=== PATIENT | female | born 2000 | race Caucasian/White ===

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

== ENCOUNTER 2020-06-27 19:48 | Emergency (ER) | payer OTHER ==
[~2020-06-27] VITALS: Ht 167.6 cm; Wt 99.8 kg
[2020-06-27 19:55] VITALS: BP 150/79
[2020-06-27 20:26] VITALS: BP 135/78
== END 2020-06-27 20:24 | disposition home or self-care (01) ==
LOC: MED 19:48
DX: L03.116 Cellulitis of left lower limb (principal); L81.8 Other specified disorders of pigmentation; E11.9 Type 2 diabetes mellitus without complications; F17.210 Nicotine dependence, cigarettes, uncomplicated; Z71.6 Tobacco abuse counseling; Z88.0 Allergy status to penicillin
CPT/HCPCS: 99282

== ENCOUNTER 2020-10-26 13:12 | Emergency (ER) | payer OTHER ==
[~2020-10-26] VITALS: Ht 167.6 cm; Wt 81.6 kg
[2020-10-26 13:16] VITALS: BP 122/80
[2020-10-26] MEDS ORDERED: SULF-59 PO (14:45)
[2020-10-26] MEDS ORDERED: NAPR-54 PO (14:45)
[2020-10-26 15:05] VITALS: BP 133/76
== END 2020-10-26 15:05 | disposition home or self-care (01) ==
LOC: MED 13:12
DX: M79.644 Pain in right finger(s) (principal); E11.9 Type 2 diabetes mellitus without complications; Z88.0 Allergy status to penicillin
CPT/HCPCS: 73140; 81025; 99284

== ENCOUNTER 2022-01-07 09:52 | Emergency (ER) | payer MEDICAID, OTHER ==
[~2022-01-07] VITALS: Ht 167.6 cm; Wt 93.4 kg
[~2022-01-07 09:52] MED LIST: NAPR-54 PO; SULF-59 PO
[2022-01-07 09:55] VITALS: BP 129/65
--- NOTE | 2022-01-07 10:00 | NUR ---
PT AMB TO BED 3.
--- NOTE | 2022-01-07 10:22 | NUR ---
21 Y.O. F C/O LOWER ABDOMINAL PAIN, NAUSEA, VOMITING X TODAY. 12 WEEKS . PT SAYS SHE HAD LIGHT SPOTTING YESTERDAY BUT NONE TODAY. DENIES FEVER, CHILLS AND PAINFUL URINATION. SHE SAYS THE PAIN IS LIKE CRAMPING AT A 5/10. A&OX4, SKIN INTACT, VITALS WNL FOR PT AND STEADY GAIT TO BEDSIDE. ALLERGY:PENICILLINS PMH: DM
[2022-01-07 10:47] LABS: BASOPHILS % (AUTO) 0.2 % (0.0-2.0); EOSINOPHILS # (AUTO) 0.1 K/uL (0-0.4); EOSINOPHILS % (AUTO) 0.6 % (0.0-4.0); HEMATOCRIT 35.5 % (36-48); HEMOGLOBIN 12.2 g/dL (12.0-16.0); LYMPHOCYTES # (AUTO) 2.2 K/uL (2.5-16.5); LYMPHOCYTES % (AUTO) 21.1 % (20.5-51.1); MEAN CORPUSCULAR HEMOGLOBIN 30 pg (27-31); MEAN CORPUSCULAR HGB CONC 35 g/dL (33-37); MEAN CORPUSCULAR VOLUME 87.8 fL (80-94); MONOCYTES # (AUTO) 0.5 K/uL (0.8-1.0); MONOCYTES % (AUTO) 5.2 % (1.7-9.3); NEUTROPHILS # (AUTO) 7.5 K/uL (1.8-7.7); NEUTROPHILS % (AUTO) 72.9 % (42.2-75.2); PLATELET COUNT (AUTO) 248 K/uL (140-450); RED BLOOD CELL COUNT(AUTO) 4.04 MIL/uL (4.20-5.40); RED CELL DISTRIBUTION WIDTH 13.9 % (11.6-13.7); WHITE BLOOD COUNT (AUTO) 10.4 K/uL (4.8-10.8)
[2022-01-07 10:47] LABS: APPEARANCE,URINE CLEAR (CLEAR); BILIRUBIN,URINE NEGATIVE (NEGATIVE); BLOOD, URINE NEGATIVE (NEGATIVE); COLOR,URINE YELLOW (YELLOW); LEUKOCYTE ESTERASE ,URINE 1+ (NEGATIVE); NITRITE, URINE NEGATIVE (NEGATIVE); UGLUCOSE NEGATIVE (NEGATIVE)
[2022-01-07 11:15] LABS: RBC,URINE 0-5 /HPF (0-5)
[2022-01-07] MEDS ORDERED: ACET-9800 PO (11:44)
[2022-01-07] MEDS ORDERED: CEPH-588 PO (11:44)
[2022-01-07 12:08] VITALS: BP 129/65
--- NOTE | 2022-01-07 12:09 | NUR ---
Patient discharged with v/s stable. Written and verbal after care instructions given and explained. Patient alert, oriented and verbalized understanding of instructions. Ambulatory with steady gait. All questions addressed prior to discharge. ID band removed. Patient advised to follow up with PMD. Rx of KEFLEX AND TYLENOL EXTRA STRENGTH given. Patient educated on indication of medication including possible reaction and side effects. Opportunity to ask questions provided and answered.
== END 2022-01-07 12:09 | disposition home or self-care (01) ==
LOC: MED 09:52
DX: O20.0 Threatened abortion (principal); O23.41 Unspecified infection of urinary tract in pregnancy, first trimester; E11.9 Type 2 diabetes mellitus without complications; Z3A.12 12 weeks gestation of pregnancy; Z88.0 Allergy status to penicillin; Z79.899 Other long term (current) drug therapy
CPT/HCPCS: 36415; 76805; 81001; 81025; 84702; 85025; 86900; 86901; 87086; 99284; Q0092

== ENCOUNTER 2024-03-05 11:07 | Emergency (ER) | payer MEDICAID, OTHER ==
[~2024-03-05] VITALS: Ht 172.7 cm; Wt 98.0 kg
[~2024-03-05 11:07] MED LIST changes: +ACET-9800 PO; +CEPH-588 PO; +NAPR-337 PO; -NAPR-54 PO
[2024-03-05 11:14] VITALS: BP 123/83; PULSE 101; TEMP 97.1
[2024-03-05] MEDS: ACETAMINOPHEN 650 MG/20.3 ML UDC PO ONE (12:15)
[2024-03-05] MEDS: ONDANSETRON 4 MG ODT PO ONE (12:15)
[2024-03-05 12:19] LABS: BILIRUBIN,URINE NEGATIVE (NEGATIVE); COLOR,URINE YELLOW (YELLOW); NITRITE, URINE POSITIVE (NEGATIVE); PROTEIN,URINE 2+ (NEGATIVE); UGLUCOSE 3+ (NEGATIVE)
[2024-03-05 12:20] LABS: APPEARANCE,URINE HAZY (CLEAR)
[2024-03-05 12:25] LABS: WBC,URINE TOO MANY TO COUNT /HPF (0-5)
[2024-03-05 12:29] LABS: BACTERIA,URINE 1+ /HPF (None Seen); SQUAMOUS EPITHELIAL CELL,UR 0-3 (FEW) /LPF (0-3 (FEW))
[2024-03-05 12:31] LABS: BLOOD, URINE 1+ (NEGATIVE); LEUKOCYTE ESTERASE ,URINE 3+ (NEGATIVE); RBC,URINE 11-20 (MOD) /HPF (0-5)
[2024-03-05] MEDS ORDERED: ONDA-188 SL (12:54)
[2024-03-05] MEDS ORDERED: SULF-59 PO (12:54)
[2024-03-05 13:09] VITALS: BP 126/79; PULSE 80; RESP 16; TEMP 97.8; O2SAT 96
== END 2024-03-05 13:11 | disposition home or self-care (01) ==
LOC: MED 11:07
DX: R30.0 Dysuria (principal); R10.30 Lower abdominal pain, unspecified; R11.0 Nausea; E11.9 Type 2 diabetes mellitus without complications; Z79.899 Other long term (current) drug therapy; Z88.0 Allergy status to penicillin
CPT/HCPCS: 81001; 81025; 87086; 87186; 99283; Q0162